=== PATIENT | female | born 1975 | race Two or more races ===

== ENCOUNTER 2025-07-06 06:17 | Emergency (ER) | payer OTHER ==
[~2025-07-06] VITALS: Ht 160 cm; Wt 66.6 kg
[2025-07-06 06:26] VITALS: BP 127/53; PULSE 80; O2SAT 98
[2025-07-06 06:45] VITALS: RESP 18
--- NOTE | 2025-07-06 06:50 | Physician Documentation ---
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 No other injuries. The patient is certainly healthy with no other medical conditions. Medication Reconciliation Allergies: Coded Allergies: Penicillins (Verified Allergy, Severe, HIVES, 07/06/25) Past Medical History Past Medical History: No Pertinent History Smoking Status: Never smoker Physical Exam Vital Signs: Temperature: 98.3, Source: Oral, Heart Rate: 80, Respiratory Rate: 16, BP: 127/53, Pulse Oximetry: 98, Weight: 66.600 Oxygen Flow Rate: 0 Physical Exam I have reviewed the triage vitals. CONST: Well developed and well nourished. In no acute distress HENT: Head Atraumatic EYES: Pupils are equal, round and reactive to light. Normal conjunctiva NECK: Normal range of motion. Supple. CARDIO: Normal rate and regular rhythm. No murmurs, rubs, or gallops. S1, S2. PULM/CHEST: No respiratory distress. Lungs clear to auscultation. No wheeze ABD: Soft and nontender. Nondistended. Bowel sounds normal. No guarding. : Exam deferred MSK: No edema. No deformity. NEURO: Alert and oriented to person, place and time. Moving all extremities SKIN: Warm and dry. PSYCH: Normal mood and affect. Good eye contact. Progress Results/Orders Results/Orders Vital Signs 07/06/25 06:26 Temp 98.3 Pulse 80 Resp 16 B/P (MAP) 127/53 Pulse Ox 98 O2 Flow Rate 0 Medical Decision Making Additional information obtaine: N/A Findings - Differential Dx:Considerations: Include: Body Fluid Exposure; Unlikely: Abrasion, Contusion, Infectious disease expos., Laceration, Puncture wound, Other Additional Comment Needlestick labs were drawn and sent to the lab. Advised patient to monitor for developing any symptoms. Return to ED should any symptoms occur. Departure Disposition: 01 HOME / SELF CARE / HOMELESS Impression: Primary Impression: Needlestick injury accident Condition: Stable Referrals: NO PRIMARY CARE PROVIDER (PCP) Signature Scribe Signature: - Attestation: - TUNDE CUADRA MD Jul 06, 2025 06:50
[2025-07-06 06:54] VITALS: TEMP 98.3
== END 2025-07-06 07:02 | disposition home or self-care (01) ==
LOC: ER 06:18
DX: Z77.21 Contact with and (suspected) exposure to potentially hazardous body fluids (principal); Z88.0 Allergy status to penicillin
CPT/HCPCS: 99282